=== PATIENT | female | born 1975 | race Caucasian/White ===

== ENCOUNTER 2017-12-17 03:35 | Emergency (ER) | payer OTHER ==
[~2017-12-17] VITALS: Ht 175.3 cm; Wt 98.0 kg
--- OUTSIDE RECORDS SUMMARY | ~2017-12-17 | XMS | Clinical Summary ---
Demographics + + + | Address | [address] | | | [place] [address] | + + + | Home Phone | | + + + | Preferred Language | Unknown | + + + | Marital Status | Unknown | + + + | Mormonism Affiliation | Unknown | + + + | Race | Unknown | + + + | Ethnic Group | Unknown | + + + Author + + + | Author | [facility] | + + + | Organization | [facility] | + + + | Address | Unknown | + + + | Phone | Unavailable | + + + Support +--------+ +---------+ + | Name | Relationship | Address | Phone | +--------+ +---------+ + | No,One | ECON | Unknown | | +--------+ +---------+ + Care Team Providers + +------+ + | Care Chief Meteorologist Name | Role | Phone | + +------+ + | Clarice Lopez Primary | PP | | | Care | | | + +------+ + Allergies Not on File Current Medications Not on file Active Problems Not on file Social History + +-------+ +--------+------+ | Tobacco Use | Types | Packs/Day | Years | Date | | | | | Used | | + +-------+ +--------+------+ | Never Assessed | | | | | + +-------+ +--------+------+ + + + | Sex Assigned at | Date Recorded | | | | + + + | Not on file | | + + + Plan of Treatment +--------+---------+ + + + | Date | Type | Specialty | Care Team | Description | +--------+---------+ + + + | 01/14/ | Office | | Felicia Rodriguez | | | 2017 | Visit | | [address] | | | | | | [place] | | | | | | [address] [place] | | | | | | [phone] | | | | | | | | +--------+---------+ + + + Results Not on filefrom Last 3 Months Insurance + +--------+ +------+-------+ + | Payer | Benefi | Subscriber | Type | Phone | Address | | | t Plan | ID | | | | | | / | | | | | | | Group | | | | | + +--------+ +------+-------+ + | MEDICAID | MEDICA | xxxxxxxx | | | [address] | | | ID | | | | [place] | | | [place] | | | | [phone] | + +--------+ +------+-------+ + + +--------+ +--------+ + + | Guarantor Name | Accoun | Relation to | Date | Phone | Billing Address | | | t Type | Patient | of | | | | | | | | | | + +--------+ +--------+ + + | MAGGIE GUPTA | Person | Self [birth year] Home: | [address] | | | al/Fam | | 1974 | [phone] | [place] [address] | | | sole | | | [phone] | | + +--------+ +--------+ + +"
--- OUTSIDE RECORDS SUMMARY | ~2017-12-17 | XMS | Clinical Summary ---
Demographics + + + | Address | [address] | | | [place] [address] | + + + | Home Phone | | + + + | Preferred Language | Unknown | + + + | Marital Status | Unknown | + + + | Anabaptist Affiliation | Unknown | + + + | Race | Unknown | + + + | Ethnic Group | Unknown | + + + Author + + + | Author | [facility] | + + + | Organization | [facility] | + + + | Address | Unknown | + + + | Phone | Unavailable | + + + Support +--------+ +---------+ + | Name | Relationship | Address | Phone | +--------+ +---------+ + | No,One | ECON | Unknown | | +--------+ +---------+ + Care Team Providers + +------+ + | Care Secondary Teacher Name | Role | Phone | + [...] | | | | | | [address] | | | | | | [phone] | | | | | | | [...] | [phone] | | | [address] | | | ID | | | | [place] | | | [place] | | | | [phone] | + +--------+ +------+-------+ + + +--------+ +--------+ + + | Guarantor Name | Accoun | Relation to | Date | Phone | Billing Address | | | t Type | Patient | of | | | | | | | | | | + +--------+ +--------+ + + | MAGGIE GUPTA | Person | Self [birth year] | Home: | [address] | | | al/Fam | | 1974 | [phone] | [place] [address] | | | sole | | | [phone] | | + +--------+ +--------+ + +"
[~2017-12-17 03:35] MED LIST: NORCO 5-325 TA1 EACH PO; PRENATAL LOW I1 EACH PO
[2017-12-17] MEDS ORDERED: OMEPRAZOLE20 MG PO (05:18)
== END 2017-12-17 05:35 | disposition home or self-care (01) ==
LOC: ED 03:35
DX: K30 Functional dyspepsia (principal); Z87.891 Personal history of nicotine dependence; Z91.018 Allergy to other foods
CPT/HCPCS: 76705; 80053; 81001; 83690; 84703; 85025; 87088; 96374; 96375; 99284; J2270; J2405; J7030

== ENCOUNTER 2024-08-29 08:05 | Day surgery (SDC) | payer BC ==
[2024-08-22 10:38] VITALS: BP 120/75
[~2024-08-29] VITALS: Ht 175.3 cm; Wt 95.0 kg
[~2024-08-29 08:05] MED LIST changes: +IBLOOD GLUCOSE TEST STRIP 1 EA TEST VI PRN; +IMITREX25 MG PO; +LACTATED RINGER'S 1,000 ML IV SCH; +LIDOCAINE HCL 1% 5 ML SDV INJ ONE; +MULTI VITAMIN1 EACH PO; +OMEPRAZOLE20 MG PO; +TRAZODONE HCL50 MG PO; +VITAMIN D310 MC5 PO
[2024-08-29] MEDS ORDERED: LIDOCAINE 1% W/ EPI 1:100,000 20 ML MDV ONE (08:09)
[2024-08-29 08:18] VITALS: BP 111/68
[2024-08-29] MEDS ORDERED: KETOROLAC TROMETHAMINE 30 MG/ML VIAL ONE (09:20)
[2024-08-29] MEDS ORDERED: fentaNYL citrate 100 MCG/2 ML VIAL ONE (09:20)
[2024-08-29] MEDS ORDERED: LIDOCAINE HCL 2% 5 ML SDV ONE (09:20)
[2024-08-29] MEDS ORDERED: DEXAMETHASONE SOD PHOS 4 MG/ML VIAL ONE (09:20)
[2024-08-29] MEDS ORDERED: propofoL 200 MG/20 ML VIAL ONE (09:20)
[2024-08-29] MEDS ORDERED: ondansetron HCL 4 MG/2 ML VIAL ONE (09:20)
[2024-08-29] MEDS ORDERED: NALOXONE HCL 0.4 MG SYR IV PRN (10:15)
[2024-08-29] MEDS ORDERED: fentaNYL citrate 50 MCG/ML SDV IV PRN (10:15)
[2024-08-29] MEDS ORDERED: ondansetron HCL 4 MG/2 ML VIAL IV PRN (10:15)
[2024-08-29] MEDS ORDERED: IBLOOD GLUCOSE TEST STRIP 1 EA TEST VI PRN (10:15)
[2024-08-29] MEDS ORDERED: SEVOFLURANE 250 ML BTL INH ONE (10:17)
--- NOTE | 2024-08-29 12:05 | NUR ---
IN PT ROOM FOR PAIN ASSESSMENT. PT CONTINUES TO REPORT NO PAIN AT THIS TIME. PT STATES NEED TO URINE VOID. PT SITS AT BEDSIDE AND REPORTS NO NAUSEA/DIZZINESS. PT STANDS AT BEDSIDE AND REPORTS NO NAUSEA/DIZZINESS, GAIT IS STEADY. PT TO RESTROOM W/THIS RN STANDBY ASSIST. PT URINE VOIDS 450 ML OF CLEAR/YELLOW URINE. PT BACK TO ROOM AND GETTING DRESSED W/ ASSISTANCE. CALL LIGHT WITHIN REACH.
--- NOTE | 2024-08-29 12:05 | NUR ---
PT ARRIVES TO DS DEPT FROM PACU VIA STRETCHER. PT IS A&O AND ASKING APPROPRIATE QUESTIONS AT THIS TIME. PT REPORTS NO PAIN OR NAUSEA. VS TAKEN. REPORT RECEIVED FROM BOB KRAMER, AT BEDSIDE. PT TOLERATES CRACKERS AND ICE WATER WITHOUT DIFFICULTY SWALLOWING. CALL LIGHT WITHIN REACH, PT REPORTS NO FURTHER NEEDS OR QUESTIONS AT THIS TIME.
[2024-08-29 12:12] VITALS: BP 124/70
--- NOTE | 2024-08-29 12:17 | NUR ---
08/29/24 1217 Madison Gardiner 1133 PT ARRIVED IN PACU SLEEPY WITH NO C/O'S. 1145 SITTING UP IN BED SIPPING ON WATER. GLASSES RETURNED TO PT. 1205 TO DS. REPORT GIVEN TO RN. AT BEDSIDE.
[2024-08-29 13:01] VITALS: BP 106/58
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
--- NOTE | 2024-08-29 13:52 | OR ---
[facility] [address] [place], [place] [address] Signed DATE OF OPERATION: 08/29/2024 SURGEON: Bayron Tinoco MD PREOPERATIVE DIAGNOSIS: Left neck mass. POSTOPERATIVE DIAGNOSIS: Left neck mass. PROCEDURE: Excision of left neck mass. 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 PREOPERATIVE HISTORY: Maggie is a 49-year-old lady who has had a several year history of left neck mass. This seems to be enlarging within the posterior fossa several cm inferior to the mastoid process just posterior to the SCM, firm, deep, taken to the operating for the above-mentioned procedures. OPERATIVE PROCEDURE AND FINDINGS: After informed consent, the patient was taken to the operating room, placed in the supine position where general LMA anesthesia was induced. The patient and procedure were verified. The patient's head and neck were turned to the right. The mass in question measured about 3 cm with firm posterior fossa just behind the SCM about 3 or 4 cm inferior to the mastoid process. After sterile prep and drape, incision was drawn over the mass in a transverse direction. 1% lidocaine with epi was injected. Incision was made through skin and subcutaneous tissue. Dissection carried down into the posterior neck behind the SCM. There was a lymph node identified in the fatty soft tissue, this was dissected free and sent separately. Dissection carried down inferiorly. Sensory nerve was identified. Caution was taken to avoid the spinal accessory nerve and it was not identified in this area. Nerve stimulator was used to verify nervous structures. The mass in question was deep in the posterior neck. Dissection identified a fatty tumor. This was dissected free from surrounding tissue and removed in pieces. No other suspicious findings. The wound was copiously lavaged with saline. A drain was placed quarter-inch Abel exiting mid wound. The wound was then closed with 4-0 interrupted Vicryl and newton. A fluff type dressing was applied. The patient was then awakened, extubated, and transported to recovery in good condition. No complications. Electronically Signed By: BAYRON TINOCO MD 08/29/24 1352 PATIENT NAME: MAGGIE LUONG OPERATIVE REPORT DATE OF : 79 REPORT #: [id number] PHYSICIAN: BAYRON TINOCO MD PCP: OTF GILLIS REPORT IS CONFIDENTIAL AND NOT TO BE RELEASED WITHOUT AUTHORIZATION [address] [place], [place] [address] Signed BLOOD LOSS: Minimal. SPECIMENS: 1. Left neck lymph node. 2. Left neck mass. DRAIN: [place]. COMPLICATIONS: No complications. Bayron Tinoco MD GC/MODL /[id number] Copies: ~ Electronically Signed By: BAYRON TINOCO MD 08/29/24 1352 PATIENT NAME: MAGGIE LUONG OPERATIVE REPORT DATE OF : 79 REPORT #: [id number] PHYSICIAN: BAYRON TINOCO MD PCP: OTF GILLIS REPORT IS CONFIDENTIAL AND NOT TO BE RELEASED WITHOUT AUTHORIZATION
--- NOTE | 2024-08-31 13:32 | PATH ---
[facility] [address] [place] [place] [address] Signed SPECIMEN(S): A LEFT NECK NODE SPECIMEN(S): B LEFT NECK MASS SPECIMEN SOURCE: A. LEFT NECK NODE B. LEFT NECK MASS CLINICAL HISTORY: Pre-: Left neck mass, post: Excision left neck mass. FINAL PATHOLOGIC DIAGNOSIS: A. Left neck lymph node, excision: - Benign lymph node. - Negative for metastatic disease or evidence of a lymphoproliferative process. B. Left neck mass, excision: - Intramuscular lipoma. - Negative for atypia or malignancy. DWS:clv MICROSCOPIC EXAMINATION: Histologic sections of all submitted blocks are examined by light microscopy. These findings, together with the gross examination, support the pathologic diagnosis. GROSS DESCRIPTION: A. The specimen, labeled and designated "Luke, C, " and designated on the requisition "left neck node," is received in formalin and consists of 1.3 x 0.7 x 0.4 cm pale pink possible lymph node. The specimen is sectioned and entirely submitted in cassette A1. B. The specimen, labeled and designated "Luke, C, " and designated on the requisition "left neck mass," is received in formalin and consists of a and 2.1 x 2.0 x 0.5 cm aggregate of yellow-bridges adipose tissue with attached pink connective tissue. The specimen is inked, and entirely submitted in cassette B1. FB (under the direct supervision of a pathologist) The Gross Description was prepared using a voice recognition system. The report was reviewed for accuracy; however, sound-alike word errors, addition and/or deletions may occur. If there is any question about this report, please contact Client Services. PATIENT NAME: MARLIN LUONG PATHOLOGY DATE OF : 79 REPORT #: [id number] PHYSICIAN: CHARMAINE PATHOLOGY PCP: OTF GILLIS REPORT IS CONFIDENTIAL AND NOT TO BE RELEASED WITHOUT AUTHORIZATION [facility] [address] [place], [place] [address] Signed PERFORMING LABORATORY: Technical component was performed by [facility], [address] [place] [id number] (CLIA# [id number]). Professional interpretation was performed by [facility], [address] [place] [id number] (CLIA#: [id number]). Diagnostician: Etienne Helms MD Pathologist Electronically Signed 08/31/2024 Copies: ~ PATIENT NAME: MARLIN LUONG PATHOLOGY DATE OF : 79 REPORT #: [id number] PHYSICIAN: CHARMAINE DESOUZA PCP: OTF GILLIS REPORT IS CONFIDENTIAL AND NOT TO BE RELEASED WITHOUT AUTHORIZATION
== END 2024-08-29 13:10 | disposition home or self-care (01) ==
LOC: DS 08:05
PROVIDERS: ATTEND Otolaryngology
PROC: 0JB50ZZ Excision of Left Neck Subcutaneous Tissue and Fascia, Open Approach (ICD-10-PCS; principal; 2024-08-29 10:00)
DX: D17.9 Benign lipomatous neoplasm, unspecified (principal)
CPT/HCPCS: 00300; J1100; J1885; J2003; J2405; J2704; J3010; J7121